=== PATIENT | male | born 1980 | race Caucasian/White ===

== ENCOUNTER → 2018-07-17 | Emergency (ER) | payer BC ==
[~2018-07-17] VITALS: Ht 167.6 cm; Wt 90.7 kg
[~2018-07-17] MED LIST: NORCO 5-325 TA1 EAC1 PO
[2018-07-17 16:25] VITALS: BP 153/111
== END ==
LOC: M.ERS 16:19
DX: K08.89 Other specified disorders of teeth and supporting structures (principal); F17.210 Nicotine dependence, cigarettes, uncomplicated

== ENCOUNTER 2020-10-13 16:36 | Emergency (ER) | payer OTHER, MEDICAID ==
[~2020-10-13] VITALS: Ht 167.6 cm; Wt 104.3 kg
[2020-10-13] MEDS ORDERED: VERAPAMIL ER180 M1 PO (16:49)
[2020-10-13] MEDS ORDERED: BUSPAR30 MG PO (16:50)
[2020-10-13 17:11] LABS: URINE BILIRUBIN NEGATIVE (Negative); URINE BLOOD NEGATIVE (Negative); URINE CLARITY CLEAR; URINE COLOR YELLOW; URINE GLUCOSE-RANDOM NEGATIVE (Negative); URINE KETONES NEGATIVE (Negative); URINE LEUKOCYTES-REFLEX NEGATIVE (Negative); URINE NITRITE-REFLEX NEGATIVE (Negative); URINE PROTEIN NEGATIVE (Negative); URINE SPECIFIC GRAVITY 1.015 (1.005-1.030); URINE UROBILINOGEN 0.2 E.U./dl (0.2-1.0)
[2020-10-13 17:52] LABS: CALCIUM 9.2 mg/dL (8.5-10.1); CREATININE 1.3 mg/dL (0.6-1.3); POTASSIUM 4.1 mmol/L (3.5-5.1)
[2020-10-13 17:53] LABS: HEMATOCRIT 42.9 % (42.0-52.0); HEMOGLOBIN 14.8 gm/dL (14.0-18.0); MCH 29.9 pg (26.0-34.0); MCHC 34.6 g/dL (28.0-37.0); MCV 86.3 fL (80.0-100.0); MPV 8.3 fl. (7.2-11.1); NUCLEATED RBCS 0 /100WBC; PLATELET COUNT* 211 thou/uL (150-400); RBC 4.97 mil/uL (4.50-6.00); RDW-CV 13.4 % (10.5-14.5); WBC 15.8 thou/uL (4.0-11.0)
[2020-10-13 17:56] LABS: ALBUMIN 4.3 g/dL (3.4-5.0); TOTAL BILIRUBIN 0.5 mg/dL (<0.1-1.0); TOTAL PROTEIN 8.3 g/dL (6.4-8.2)
[2020-10-13 18:45] LABS: ABSOLUTE LYMPHOCYTES 1.4 thou/uL (0.8-5.3); ABSOLUTE MONOCYTES 0.6 thou/uL (0.0-1.2); ABSOLUTE NEUTROPHILS 13.7 thou/uL (1.6-8.1); ATYPICAL LYMPHS 1 %; PLATELET ESTIMATE ADEQUATE
[2020-10-13] MEDS ORDERED: METHOCARBAMOL500 M2 PO (21:19)
[2020-10-13] MEDS ORDERED: ZOFRAN ODT4 MG PO (21:19)
[2020-10-13 21:39] VITALS: BP 120/65
[2020-10-13] MEDS ORDERED: CORTISPORIN OTI10 ML OTIC (22:14)
--- NOTE | 2020-10-14 09:19 | EKG ---
[place] [address] ELECTROCARDIOGRAM REPORT Name: MARIA DEL ROSARIO LEWIS Room: [facility]#: [id number] Admission: 10/13/20 Attend Phys: Discharge: 10/13/20 Date of : [birth year] Date of Service: 10/13/201931 Report #: [id number] THIS REPORT FOR: //name// [facility] ED Test Date: 2020-10-13 Test Time: 19:32:14 Pat Name: MARIA DEL ROSARIO LEWIS Department: Room: Gender: Diet Consultant: ASHER : 1987-10-27 Requested By: Prema Gr Order Number: [id number] MD: Milton Grey Measurements Intervals [place] Rate: 113 P: 40 SC: 136 QRS: 50 QRSD: 89 T: -29 QT: 316 QTc: 434 Interpretive Statements Sinus tachycardia Borderline T abnormalities, inferior leads Baseline wander in lead(s) V1 No previous ECG available for comparison Electronically Signed On 10-14-2020 9:19:40 CDT by Milton Grey [email or web address] <ELECTRONICALLY SIGNED> By: Milton Grey MD, FACC 10/14/20 0919 31 31 Milton Grey MD, FAC /EPI
== END 2020-10-13 21:39 | disposition home or self-care (01) ==
LOC: M.ERS 16:36
PROVIDERS: Nurse Practitioner Family
DX: R10.84 Generalized abdominal pain (principal); Z20.822 Contact with and (suspected) exposure to COVID-19; I10 Essential (primary) hypertension; H60.91 Unspecified otitis externa, right ear; R50.9 Fever, unspecified; E78.00 Pure hypercholesterolemia, unspecified; Z79.899 Other long term (current) drug therapy; Z87.442 Personal history of urinary calculi